=== PATIENT | female | born 1995 | race Caucasian/White ===

== ENCOUNTER 2020-02-12 16:30 | Inpatient (IN) ==
[2020-02-12] MEDS ORDERED: Naloxone 0.4 MG/ML INJ IVP PRN (16:39)
[2020-02-12] MEDS ORDERED: *HR* Promethazine 25 MG/ML VIAL IM PRN (16:39)
[2020-02-12] MEDS ORDERED: Ringers Solution, Lactated 1,000 ML IVC SCH (16:45)
[2020-02-12] MEDS ORDERED: Acetaminophen 325 MG TABLET PO PRN (18:23)
[2020-02-12] MEDS ORDERED: 0.9 % Sodium Chloride 1,000 ML IV ONE (18:24)
[2020-02-12] MEDS ORDERED: Hyoscyamine SL 0.125 MG TAB.SUBL SL PRN (18:36)
[2020-02-12] MEDS: *HR* HYDROcodone/Acet 5/325 mg TABLET PO PRN (19:02)
[2020-02-12] MEDS: *HR* Heparin 5,000 UNIT/ML VIAL SQ SCH (19:02)
[2020-02-12] MEDS: Ringers Solution, Lactated 1,000 ML IVC SCH (20:52)
[2020-02-13] MEDS: Ondansetron 4 MG/2 ML VIAL IVP PRN ×4 (02:36→17:05)
[2020-02-13] MEDS: Ringers Solution, Lactated 1,000 ML IVC SCH ×2 (02:37→09:20)
[2020-02-13] MEDS: *HR* HYDROcodone/Acet 5/325 mg TABLET PO PRN ×3 (02:43→21:41)
[2020-02-13 06:09] LABS: Basophils % 0.5 %; Eosinophils % 0.3 %; Hematocrit 32.6 % (35.3-44.9); Hemoglobin 11.1 g/dL (11.5-15.4); Immature Granulocytes % 0.7 % (0-4); Lymphocytes # 1.6 K/mcL (0.6-4.6); Lymphocytes % 20.2 %; Mean Corpuscular Hemoglobin 27.8 pg (28.0-33.3); Mean Corpuscular Volume 81.7 fL (83.0-100.0); Mean Platelet Volume 10.2 fL (9.4-12.4); Monocytes # 0.4 K/mcL (0.0-1.3); Monocytes % 5.6 %; Neutrophils # 5.6 K/mcL (1.6-8.9); Platelet Count 146 K/mcL (140-400); Red Blood Count 3.99 M/mcL (3.82-4.97); Red Cell Distribution Width 13.8 % (11.5-14.5); Segmented Neutrophils % 72.7 %; White Blood Count 7.7 K/mcL (4.3-11.1)
[2020-02-13] MEDS: *HR* Heparin 5,000 UNIT/ML VIAL SQ SCH ×2 (06:09→17:05)
[2020-02-13 06:24] LABS: BUN/Creatinine Ratio 15 (6-26); Blood Urea Nitrogen 11 mg/dL (6-20); Calcium 7.7 mg/dL (8.6-10.3); Carbon Dioxide 20 mEq/L (23-29); Chloride 104 mEq/L (98-107); Glucose 94 mg/dL (70-105); Osmolality,Calculated 275 (280-300); Potassium 3.4 mEq/L (3.5-5.1); Sodium 133 mEq/L (136-145); eGFR For African Americans > 60 (> 60); eGFR For Non-African Americans > 60 (> 60)
[2020-02-13] MEDS: Morphine Sulfate 2 MG/ML SYRINGE IVP PRN ×3 (13:52→20:24)
[2020-02-14] MEDS: *HR* Heparin 5,000 UNIT/ML VIAL SQ SCH (06:32)
[2020-02-14] MEDS: Ondansetron 4 MG/2 ML VIAL IVP PRN (06:33)
[2020-02-14 07:42] LABS: BUN/Creatinine Ratio 9 (6-26); Blood Urea Nitrogen 7 mg/dL (6-20); Calcium 8.1 mg/dL (8.6-10.3); Carbon Dioxide 24 mEq/L (23-29); Chloride 104 mEq/L (98-107); Glucose 111 mg/dL (70-105); Osmolality,Calculated 279 (280-300); Potassium 3.6 mEq/L (3.5-5.1); Sodium 135 mEq/L (136-145); eGFR For African Americans > 60 (> 60); eGFR For Non-African Americans > 60 (> 60)
[2020-02-14 07:44] LABS: Hematocrit 33.6 % (35.3-44.9); Hemoglobin 11.2 g/dL (11.5-15.4); Mean Corpuscular HGB Conc 33.3 g/dL (31.6-35.5); Mean Corpuscular Hemoglobin 27.3 pg (28.0-33.3); Mean Corpuscular Volume 81.8 fL (83.0-100.0); Mean Platelet Volume 10.3 fL (9.4-12.4); Platelet Count 156 K/mcL (140-400); Red Blood Count 4.11 M/mcL (3.82-4.97); Red Cell Distribution Width 13.7 % (11.5-14.5); White Blood Count 6.2 K/mcL (4.3-11.1)
[2020-02-14 13:51] VITALS: BP 116/81
== END 2020-02-14 14:23 | disposition home or self-care (01) | DRG 463 ==
LOC: INPPIK
PROVIDERS: ADMIT Family Medicine; ATTEND Family Medicine